=== PATIENT | female | born 1990 | race American Indian/Alaskan Native ===

== ENCOUNTER 2018-07-05 22:47 | Emergency (ER) | payer MEDICAID ==
[2018-07-05] MEDS ORDERED: NACL 0.9% 1000 ML 1,000 ML IV ONE (23:22)
[2018-07-05 23:36] LABS: Basophils % (Auto) 0.1 % (0.0-1.8); Eosinophils % (Auto) 0.2 % (0.0-4.3); Hematocrit 32.2 % (30.3-42.9); Hemoglobin 10.9 gm/dl (10.1-14.3); Lymphocytes # (Auto) 1.2 K/mm3 (1.2-5.4); Lymphocytes % (Auto) 18.4 % (13.4-35.0); Mean Corpuscular HGB Conc 34 % (30-34); Mean Corpuscular Volume 89 fl (79-97); Monocytes # (Auto) 0.4 K/mm3 (0.0-0.8); Monocytes % (Auto) 5.6 % (0.0-7.3); Platelet Count 251 K/mm3 (140-440); Red Blood Count 3.63 M/mm3 (3.65-5.03); Red Cell Distribution Width 13.8 % (13.2-15.2)
[2018-07-05 23:49] LABS: INR 0.94 (0.87-1.13)
[2018-07-05 23:50] LABS: Partial Thromboplastin Time 23.9 Sec. (24.2-36.6)
[2018-07-05 23:51] LABS: Alanine Aminotransferase 7 units/L (7-56); Albumin 3.5 g/dL (3.9-5); BUN/Creatinine Ratio 13; Blood Urea Nitrogen 8 mg/dL (7-17); Calcium 8.5 mg/dL (8.4-10.2); Hemolysis Index 1
[2018-07-05 23:52] LABS: Bilirubin,Direct < 0.2 mg/dL (0-0.2)
--- NOTE | 2018-07-06 00:01 | Emergency Department Report ---
History of Present Illness - General Chief Complaint: Overdose Stated Complaint: POSS OVERDOSE Time Seen by Provider: 07/05/18 23:06 Source: patient, family, EMS Mode of arrival: Stretcher Limitations: No Limitations - History of Present Illness Initial Comments: 27-year-old female, 20 weeks , presents to ED for possible overdose. Patient states she had a headache, so she took 5 Tylenol PM tablets, one percocet tab, and one sertraline tab. The patient's sister came home and states that she found the patient laying in the bathroom closet, unresponsive. When EMS arrived, they report patient was not unresponsive, but awake and alert. No medications were given to the patient by EMS and she was transported to the ED for further evaluation. Patient is currently , and has two young children at home, ages 1 and 2. Patient denies that this was a suicide attempt. However, she does report a history of depression, states that she is currently depressed. Patient also reports previous suicide attempt 8 years ago by attempted overdose with pills. Patient initially reported to me that she took the pills at approximately 7 PM, however there are other reports that patient may have taken the pills at 9 PM. Complaint: other (pt denies that this was an intentional overdose) -: This evening Intent: other (headache relief) How Overdose Was Discovered: family/friend present Associated Symptoms: depression Treatments Prior to Arrival: none - Related Data Allergies Allergy/AdvReac Type Severity Reaction Status Date / Time No Known Allergies Allergy Unverified 07/05/18 23:30 ED Review of Systems ROS: Stated complaint: POSS OVERDOSE Other details as noted in HPI Comment: All other systems reviewed and negative Gastrointestinal: denies: nausea, vomiting Neurological: headache Psychiatric: depression. denies: suicidal thoughts ED Past Medical Hx - Past Medical History Previous Medical History?: No - Surgical History Past Surgical History?: No - Social History Smoking Status: Never Smoker Substance Use Type: None ED Physical Exam - General Limitations: No Limitations General appearance: alert, in no apparent distress - Head Head exam: Present: atraumatic, normocephalic - Eye Eye exam: Present: normal appearance - ENT ENT exam: Present: mucous membranes moist - Neck Neck exam: Present: normal inspection - Respiratory Respiratory exam: Present: normal lung sounds bilaterally. Absent: respiratory distress - Cardiovascular Cardiovascular Exam: Present: regular rate, normal rhythm - GI/Abdominal GI/Abdominal exam: Present: soft, other (gravid abdomen). Absent: distended, tenderness - Extremities Exam Extremities exam: Present: normal inspection - Neurological Exam Neurological exam: Present: alert, oriented X3, CN II-XII intact. Absent: motor sensory deficit - Psychiatric Psychiatric exam: Present: flat affect - Skin Skin exam: Present: warm, dry, intact, normal color ED Course Vital Signs 07/05/18 07/05/18 07/05/18 23:00 23:07 23:31 Temperature 98.1 F Pulse Rate 94 H 93 H Respiratory 12 20 20 Rate Blood Pressure 117/66 Blood Pressure 121/63 [Left] O2 Sat by Pulse 100 100 100 Oximetry 07/06/18 07/06/18 07/06/18 00:00 00:23 01:01 Temperature Pulse Rate 89 89 83 Respiratory 20 11 L 16 Rate Blood Pressure 116/71 121/75 107/45 Blood Pressure [Left] O2 Sat by Pulse 98 100 100 Oximetry 07/06/18 07/06/18 07/06/18 02:00 03:01 04:00 Temperature Pulse Rate 90 101 H 93 H Respiratory 11 L 15 15 Rate Blood Pressure 112/66 100/58 102/50 Blood Pressure [Left] O2 Sat by Pulse 100 99 99 Oximetry 07/06/18 07/06/18 07/06/18 05:00 10:03 15:18 Temperature 98.3 F 98.2 F Pulse Rate 82 80 83 Respiratory 18 20 20 Rate Blood Pressure 98/47 Blood Pressure 102/64 117/65 [Left] O2 Sat by Pulse 95 99 100 Oximetry - Consultations Consultation #1: 07/06/18 01:16 Spoke w/ Poison Control. Since two different times given for ingestion. Will also check 1AM level, which will be 4 hours from 9PM. Also states if ingestion not toxic for mother, then not toxic for fetus. ED Medical Decision Making - Lab Data Result diagrams: 07/05/18 23:20 07/05/18 23:20 - EKG Data -: EKG Interpreted by Me EKG shows normal: sinus rhythm, axis, intervals, QRS complexes, ST-T waves Rate: normal - EKG Data Interpretation: no acute changes - Medical Decision Making 27 yo F, 20 wks , w/ history of depression and prior suicide attempt p resents following apparent reported overdose. Patient states she took 5 tylenol PMs, one percocet, and one sertraline for headache relief. Does admit to feeling depressed, but denies this was a suicide attempt or any suicidal ideations. Mental status normal. Vitals and both EKGs normal. Labs normal including 4-hour tylenol level. Pt reports that she is 20 wks . heart tones normal. Patient denies abdominal pain. Patient has been placed on a 1013. She is medically clear for mental health evaluation. Will dispo per psych. - Differential Diagnosis tylenol toxicity, overdose, suicidal ideations Critical care attestation.: If time is entered above; I have spent that time in minutes in the direct care of this critically ill patient, excluding procedure time. ED Disposition Clinical Impression: Overdose, Medical clearance for psychiatric admission Disposition: [id number] PSY HOSP/PSY UNIT Is pt being admited?: No Condition: Stable Referrals: PRIMARY CARE [Primary Care Provider] - 3-5 Days
[2018-07-06 01:39] LABS: Amphetamine Screen,Urine PRESUMPTIVE NEGATIVE; Benzodiazepines Screen,Urine PRESUMPTIVE NEGATIVE; Cannabinoid Screen,Urine PRESUMPTIVE NEGATIVE; Cocaine Screen,Urine PRESUMPTIVE NEGATIVE; Methadone Screen,Urine PRESUMPTIVE NEGATIVE; Opiate Screen,Urine PRESUMPTIVE NEGATIVE
--- NOTE | 2018-07-06 12:02 | Consultation ---
History of Present Illness - Reason for Consult Consult date: 07/06/18 Reason for consult: Mental Health EValuation Requesting physician: USHA WHITE - Chief Complaint Chief complaint: "i did take several pills" - History of Present Psychiatric Illness 27-year-old AA female who presented to the ER for possible overdose. Today the patient is calm and cooperative during the assessment. She stated that she was dealing with several life stressors (relationship/family dynamic issues) prior to her ingested 1 Zoloft pill, 1 Percocet pill, and 5 Tylenol pills. She stated that she wanted everything to "go away" when she ingested the pills. She was asked iwas she trying to kill herself, she would not confirm or deny. The patient has a hx of depression along with a previous suicide attempt by overdose 8 years ago. She stated that she haven't taken her Zoloft since she became . Current;y, she denies SI/HI's and AVH's. She denies erratic sleep and a poor appetite. She denies recreational drug use and alcohol consumption (etoh) Medications and Allergies Allergies Allergy/AdvReac Type Severity Reaction Status Date / Time No Known Allergies Allergy Unverified 07/05/18 23:30 Past psychiatric history - Past Medical History Past Medical History: other ( x 3) Past Surgical History: No surgical history - past Psychiatric treatment and history psychiatric treatment history: Previous overdose at 18 yrs old. Denies fam psy hx. - Social History Social history: lives with family Mental Status Exam - Vital signs Last Vital Signs Temp 98.3 F 07/06/18 10:03 Pulse 80 07/06/18 10:03 Resp 20 07/06/18 10:03 BP 102/64 07/06/18 10:03 Pulse Ox 99 07/06/18 10:03 - Exam Narrative exam: MSE: Appearance: calm, cooperative Behavior: regular eye contact Speech: regular rate and tone Mood: "overwhelmed" Affect: flat Thought Process: linear Thought Content: denies SI/HI's and AVH's Motor Activity: sitting up in the bed Cognition: A/O x 3 Insight:fair Judgment: variable Results Result Diagrams: 07/05/18 23:20 07/05/18 23:20 Abnormal lab results 07/05/18 07/05/18 07/05/18 Range/Units 23:20 23:20 23:20 RBC 3.63 L (3.65-5.03) M/mm3 Seg Neutrophils % 75.7 H (40.0-70.0) % APTT 23.9 L (24.2-36.6) Sec. Potassium 3.4 L (3.6-5.0) mmol/L Creatinine 0.6 L (0.7-1.2) mg/dL Albumin 3.5 L (3.9-5) g/dL HCG, Quant (0-4) mIU/mL Salicylates (2.8-20.0) mg/dL 07/05/18 07/05/18 Range/Units 23:20 23:20 RBC (3.65-5.03) M/mm3 Seg Neutrophils % (40.0-70.0) % APTT (24.2-36.6) Sec. Potassium (3.6-5.0) mmol/L Creatinine (0.7-1.2) mg/dL Albumin (3.9-5) g/dL HCG, Quant 08753 H (0-4) mIU/mL Salicylates < 0.3 L (2.8-20.0) mg/dL All other labs normal. Assessment and Plan Assessment and plan: Impression: MDD, Severe Type. Intentional Overdose. Today the patient is calm and cooperative during the assessment. The patient is . Recommendation/Plan: Continue 1013. Discussed risk/benefits of antidepressants, the patient prefer talk therapy at this time because she is . Discussed generalized coping skills with the patient. Dispo: The patient was referred to inpatient psy services. Will staff with Dr Tanner Traylor.
[2018-07-06] MEDS ORDERED: TYLENOL ONE (16:53)
[2018-07-07 09:35] VITALS: BP 102/62
[2018-07-07] MEDS ORDERED: PRENATAL VITAMIN PO SCH (10:00)
--- NOTE | 2018-07-07 10:36 | Progress Note ---
Subjective - Reason for Consult Consult date: 07/07/18 Reason for consult: Psychiatry Follow-up - Chief Complaint Chief complaint: "i need to know my next step" 27-year-old AA female who presented to the ER for possible overdose. Today the patient is calm and cooperative during the assessment. She is concerned about what she should expect during her transition to a mental health facility. I the provider explained to the patient what to expect next when transferred. She was asked about her mental health, she stated, 'I'm fine." She denies SI/HI's and AVH's. Mental Status Exam - Vital signs Last Vital Signs Temp 97.8 F 07/07/18 09:35 Pulse 80 07/07/18 09:35 Resp 12 07/07/18 09:35 BP 102/62 07/07/18 09:35 Pulse Ox 100 07/07/18 09:35 - Exam Narrative exam: MSE: Appearance: calm, cooperative Behavior: regular eye contact Speech: regular rate and tone Mood: "okay" Affect: flat Thought Process: linear Thought Content: denies SI/HI's and AVH's Motor Activity: sitting up in the bed Cognition: A/O x 3 Insight:fair Judgment: variable Assessment and Plan Impression: MDD, Severe Type. Intentional Overdose. Today the patient is calm and cooperative during the assessment. The patient is . Recommendation/Plan: Continue 1013. Discussed risk/benefits of antidepressants, the patient prefer talk therapy at this time because she is . Discussed generalized coping skills with the patient. Dispo: The patient was accepted at [facility] for inpatient psy services. Staffed with Dr Jimbo Traylor.
== END 2018-07-07 10:20 ==
LOC: ED 22:47
DX: O9A.212 Injury, poisoning and certain other consequences of external causes complicating pregnancy, second trimester (principal); T39.1X1A Poisoning by 4-Aminophenol derivatives, accidental (unintentional), initial encounter; T43.221A Poisoning by selective serotonin reuptake inhibitors, accidental (unintentional), initial encounter; R51 Headache; Z3A.20 20 weeks gestation of pregnancy; Y92.89 Other specified places as the place of occurrence of the external cause
CPT/HCPCS: 36415; 80048; 80076; 80307; 84702; 85025; 85610; 85730; 93005; 93010; 99285; G0480; J7030; 80320